=== PATIENT | female | born 1940 | race Caucasian/White ===

== ENCOUNTER 2021-08-06 08:06 | Outpatient (CLI) | payer MEDICARE | END 2021-08-06 08:07 | disposition home or self-care (01) | LOC: CSHCT 08:06 | PROVIDERS: ATTEND Internal Medicine Cardiovascular Disease | DX: Z01.812 Encounter for preprocedural laboratory examination (principal); I48.0 Paroxysmal atrial fibrillation | CPT/HCPCS: 82565 ==